=== PATIENT | female | born 1940 | race Caucasian/White ===

== ENCOUNTER 2020-07-02 07:25 | Day surgery (SDC) | payer MEDICARE, OTHER ==
--- NOTE | 2020-05-21 09:20 | NUR ---
PT ARRIVED TO DAY SURGERY RM 9. PT CONFIRMED THAT SHE DID NOT DO THE PRE-OP COVID SCREEN. PROCEDURE CANCELLED PER PROTOCOL AND PT INSTRUCTED TO RESCHEDULE WITH DR. MCMAHON OFFICE.
[~2020-07-02] VITALS: Ht 160 cm; Wt 78.8 kg
[~2020-07-02 07:25] MED LIST: ACETAMINOPHEN-1 EAC1 PO; CITALOPRAM HBR10 MG PO; DICYCLOMINE HCL10 MG PO; REQUIP XL2 MG PO
[2020-07-02] MEDS ORDERED: MULTI VITAMIN1 EACH PO (07:47)
[2020-07-02] MEDS ORDERED: EXCEDRIN MIGRA1 EACH PO (07:58)
--- NOTE | 2020-07-02 08:36 | NUR ---
07/02/20 0836 Martha Menjivar TO PACU, AWAKENS AND ANSWERS QUESTIONS EASILY. DENIES C/O.
--- NOTE | 2020-07-02 09:58 | OR ---
[facility] [address], [place] [address] Signed DATE OF OPERATION: 07/02/2020 SURGEON: Jessee Hendrix MD PREOPERATIVE DIAGNOSES: 1. Left upper quadrant abdominal pain. 2. Irritable bowel syndrome with diarrhea. 3. Laparoscopic Aman fundoplication in 2014. 4. Recurrent hiatal hernia. 5. History of Crohn disease in her son. POSTOPERATIVE DIAGNOSES: 1. Aman fundoplication (40-38 cm). 2. Mild patchy gastritis. 3. Patulous esophagus. PROCEDURES: EGD with CLOtest and biopsies of the duodenum, pyloric bulb and antrum. ESTIMATED BLOOD LOSS: None. INDICATIONS: Jaime is a 79-year-old female asked to see me for upper endoscopy. She has had irritable bowel syndrome with diarrhea for many years. She had a lap Aman in 2014 while living over in [place], [place]. Recently they moved to the [facility] [address] to be closer to family. She has been having left upper quadrant abdominal pain. She said the acid reflux is markedly improved. A CT scan of the abdomen and pelvis for microscopic hematuria showed a recurrence of her hiatal hernia. Consequently, she was asked to see me with respect to the above. I had explained that it is quite common that part of the fundoplication herniates. As long as it is functioning and asymptomatic, it is best to left alone. We also reviewed upper endoscopy in detail. She understands the nature of the test along with its risks including, but not limited to gas bloating, crampy abdominal pain, bleeding, perforation requiring surgery, and missed diagnosis. She also recalls the need for IV conscious sedation. She had expressed understanding and wished to proceed. We also sent her for a repeat barium swallow. She has a with an obvious patulous esophagus in her Aman fundoplication. She does have some recurrence to the hiatal hernia. Jaime had expressed understanding and wished to proceed with her upper endoscopy. Electronically Signed By: JESSEE HENDRIX MD 07/02/20 0958 PATIENT NAME: JAIME MELENDEZ OPERATIVE REPORT DATE OF : 44 REPORT #: [id number] PHYSICIAN: JESSEE HENDRIX MD PCP: GEORGIA SEWELL MD REPORT IS CONFIDENTIAL AND NOT TO BE RELEASED WITHOUT AUTHORIZATION [facility] [address] [place] [id number] Signed PROCEDURE NOTE: Jaime was taken into our endoscopy suite and placed in the supine semi-recumbent position. She was given IV sedation with 2 mg of Versed and 50 mcg of fentanyl. She is bradycardic in the 40s and so her circulation time was a bit slow. The posterior oropharynx was anesthetized with Hurricaine spray. A bite block was utilized for the case. The adult gastroscope had been introduced and advanced under direct visualization of camera. We could see she had a patulous esophagus with saliva in her distal esophagus. We went through the fundoplication all the way out into the third portion of the duodenum. We took a biopsy of the duodenum because of history of diarrhea. However, the duodenum and pyloric channel were unremarkable. The stomach showed some mild patchy erythematous changes throughout. We went and took a biopsy of the antrum for CLOtest as well as pathologic review. Upon retroflexion of scope, we can easily see her intact fundoplication. The scope was withdrawn up through the area of the fundoplication. It measured out from 40 cm back to about 37 cm. The GE junction is unremarkable. There is no disruption to the Z-line. No Brannon's mucosa, no distal esophagitis. Again, she has a patulous esophagus with pooling of saliva. However, no irritation. The middle and upper esophagus were unremarkable. No obvious areas of narrowing with the scope. The vocal cords and arytenoids were unremarkable. The gas had been suctioned out and the gastroscope removed. Jaime tolerated the procedure quite well. RECOMMENDATIONS: I will see Jaime back in my office in 7 to 14 days to review her barium swallow in the upper endoscopy. eJssee Hendrix MD ALB/MODL /[id number] cc: MD Jessee Smith MD Copies: GEORGIA SEWELL DMD Electronically Signed By: JESSEE HENDRIX MD 07/02/20 0958 PATIENT NAME: JAIME MELENDEZ OPERATIVE REPORT DATE OF : 44 REPORT #: [id number] PHYSICIAN: JESSEE HENDRIX MD PCP: GEORGIA SEWELL MD REPORT IS CONFIDENTIAL AND NOT TO BE RELEASED WITHOUT AUTHORIZATION [address] [address] Signed JESSEE HENDRIX MD ~ Electronically Signed By: JESSEE HENDRIX MD 07/02/20 0958 PATIENT NAME: JAIME MELENDEZ OPERATIVE REPORT DATE OF : 44 REPORT #: [id number] PHYSICIAN: JESSEE HENDRIX MD PCP: GEORGIA SEWELL MD REPORT IS CONFIDENTIAL AND NOT TO BE RELEASED WITHOUT AUTHORIZATION
--- NOTE | 2020-07-03 15:49 | PATH ---
[facility] [address] [place], [place] [address] Signed SPECIMEN(S): A DUODENAL BIOPSY SPECIMEN(S): B ANTRUM/PYLORUS BIOPSY SPECIMEN SOURCE: A. DUODENAL BIOPSY B. ANTRUM/PYLORUS BIOPSY CLINICAL HISTORY: Left upper quadrant pain. History of hiatal hernia. History of diarrhea. Gastritis. MICROSCOPIC DESCRIPTION: Histologic sections of all submitted blocks are examined by light microscopy. These findings, together with the gross examination, support the pathologic diagnosis. B1 - An immunostain for Helicobacter pylori is performed with appropriate controls to evaluate for the presence of microorganisms. The stain is negative for organisms. FINAL PATHOLOGIC DIAGNOSIS: A. Duodenal biopsy: - Benign duodenal mucosa, negative for specific diagnostic abnormality. B. Antrum/pylorus, biopsy: - Mild chronic gastritis. - Helicobacter pylori immunostain is negative for organisms. JVR:cml:C2NR GROSS DESCRIPTION: Two specimens are received in two containers, labeled "NO." A. The specimen, labeled "NO, duodenum biopsy," is received in formalin and consists of one martinez soft tissue fragment that measures 0.3 cm in greatest dimension. The specimen is entirely submitted in cassette (A1). B. The specimen, labeled "NO, antrum biopsy," is received in formalin and consists of one martinez soft tissue fragment that measures 0.3 cm in greatest dimension. The specimen is entirely submitted in cassette (B1). JS (under the direct supervision of a pathologist) The Gross Description was prepared using a voice recognition system. The report was reviewed for accuracy; however, sound-alike word errors, addition and/or deletions may occur. If there is any question about this report, please contact Client Services. PATIENT NAME: JAIME MELENDEZ PATHOLOGY DATE OF : 44 REPORT #: [id number] PHYSICIAN: [facility] PCP: GEORGIA SEWELL MD REPORT IS CONFIDENTIAL AND NOT TO BE RELEASED WITHOUT AUTHORIZATION [facility] [address] [place], [place] [address] Signed PERFORMING LABORATORY: The technical component was performed by [facility], [address] [place] [address] (Cafeteria [employer] Lunchroom Checker: Roselyn Tam MD; CLIA# [id number]). Professional interpretation [place] [address]. Diagnostician: Yann Toure MD Pathologist Electronically Signed 07/03/2020 Copies: ~ PATIENT NAME: JAIME MELENDEZ PATHOLOGY DATE OF : 44 REPORT #: [id number] PHYSICIAN: [facility] PCP: GEORGIA SEWELL MD REPORT IS CONFIDENTIAL AND NOT TO BE RELEASED WITHOUT AUTHORIZATION
== END 2020-07-02 09:00 | disposition home or self-care (01) ==
LOC: DS 07:25 → OPS 07:25
PROVIDERS: ATTEND Colon & Rectal Surgery
PROC: 0DB68ZX Excision of Stomach, Via Natural or Artificial Opening Endoscopic, Diagnostic (ICD-10-PCS; 2020-07-02)
PROC: 0DB98ZX Excision of Duodenum, Via Natural or Artificial Opening Endoscopic, Diagnostic (ICD-10-PCS; principal; 2020-07-02 08:15)
DX: K29.50 Unspecified chronic gastritis without bleeding (principal); K58.0 Irritable bowel syndrome with diarrhea; K44.9 Diaphragmatic hernia without obstruction or gangrene; K22.9 Disease of esophagus, unspecified; K21.9 Gastro-esophageal reflux disease without esophagitis; F41.8 Other specified anxiety disorders; G25.81 Restless legs syndrome; M25.561 Pain in right knee; M25.552 Pain in left hip; Z98.890 Other specified postprocedural states; Z83.79 Family history of other diseases of the digestive system
CPT/HCPCS: 86677; 88305; 88342; 99153; G0500; J2250; J3010; J7121

== ENCOUNTER 2021-05-09 08:42 | Emergency (ER) | payer MEDICARE, OTHER ==
[~2021-05-09] VITALS: Ht 160 cm; Wt 78.5 kg
[~2021-05-09 08:42] MED LIST changes: +EXCEDRIN MIGRA1 EACH PO; +MULTI VITAMIN1 EACH PO
--- NOTE | 2021-05-10 18:51 | EKG ---
[facility] [address] [facility] [place], [place] [address] Signed Sinus bradycardia Otherwise normal ECG No previous ECGs available Confirmed by IRMA PHELAN DO ([id number]) on 05/10/2021 6:51:35 PM Electronically Signed By: IRMA PHELAN DO 05/10/211850 PATIENT NAME: JAIME MELENDEZ Electrocardiogram DATE OF : 44 PHYSICIAN: IRMA PHELAN DO REPORT #: [id number] REPORT IS CONFIDENTIAL AND NOT TO BE RELEASED WITHOUT AUTHORIZATION
== END 2021-05-09 11:10 | disposition home or self-care (01) ==
LOC: ED 08:42
DX: R07.89 Other chest pain (principal); Z87.891 Personal history of nicotine dependence; Z88.0 Allergy status to penicillin; Z79.899 Other long term (current) drug therapy
CPT/HCPCS: 71045; 71260; 80053; 84484; 85025; 85379; 93005; 93010; 99285-25; Q9967

== ENCOUNTER 2022-03-30 10:31 | Emergency (ER) | payer MEDICARE, OTHER ==
[~2022-03-30] VITALS: Ht 160 cm; Wt 81.2 kg
[2022-03-30] MEDS ORDERED: ONDANSETRON ODT8 MG PO (12:46)
== END 2022-03-30 13:47 | disposition home or self-care (01) ==
LOC: ED 10:31
DX: K52.9 Noninfective gastroenteritis and colitis, unspecified (principal); Z87.891 Personal history of nicotine dependence; Z88.0 Allergy status to penicillin; Z79.899 Other long term (current) drug therapy
CPT/HCPCS: 36415; 80053; 81001; 83735; 85025; 96361; 96374; 99284-25; J2405; J7030

== ENCOUNTER 2023-01-11 05:45 | Day surgery (SDC) | payer MEDICARE, OTHER ==
[2022-12-31 14:00] VITALS: BP 139/77
[~2023-01-11] VITALS: Ht 160 cm; Wt 79.5 kg
[2023-01-11] VITALS (10 sets, daily range): BP systolic 90–128; BP diastolic 50–66
[~2023-01-11 05:45] MED LIST changes: +ONDANSETRON ODT8 MG PO; -REQUIP XL2 MG PO; +ROPINIROLE HCL4 MG PO; +VITAMIN A2400 MCG PO; +VITAMIN B COMP1 EACH PO; +VITAMIN K100 MCG PO
[2023-01-11] MEDS ORDERED: EXCEDRIN MIGRA1 EAC2 PO (06:15)
[2023-01-11] MEDS ORDERED: XARELTO10 MG PO (09:11)
[2023-01-11] MEDS ORDERED: SENNA LAX8.6 MG PO (09:11)
[2023-01-11] MEDS ORDERED: OXYCODONE HCL5 MG PO (09:11)
[2023-01-11] MEDS ORDERED: GABAPENTIN300 MG PO (09:11)
[2023-01-11] MEDS ORDERED: CEFUROXIME500 MG PO (13:08)
--- NOTE | 2023-01-11 13:39 | OR ---
[facility] [address] [facility] [place] [address] Signed DATE OF OPERATION: 01/11/2023 SURGEON: Marilu Arzola MD PREOPERATIVE DIAGNOSIS: Left hip DJD, severe. POSTOPERATIVE DIAGNOSIS: Left hip DJD, severe. PROCEDURE PERFORMED: Left total hip arthroplasty with Abdiaziz. RV TECHNICIAN: Ellen Dominguez PA-C. Ellen was present and critical for all portions of procedure. ANESTHESIA: Spinal. BLOOD LOSS: 175 mL. IMPLANTS: Otterbein size 2 high offset stem, 46 mm cup with 2 screws and +0 head. BRIEF HISTORY: Jaime is an 82-year-old female with progressive worsening of severe osteoarthritis in the left hip. Risks and benefits of operative treatment were discussed with her and she elected to proceed. DESCRIPTION OF OPERATION: Once consent was obtained, she was taken to the operating room. After adequate anesthesia, she was placed in the operating bed on the right lateral decubitus position. Axillary roll was placed and the leg was prepped and draped in a standard sterile fashion. All downside pressure points were well padded. The pins for the computer array were then placed in the iliac crest three fingerbreadths posterior to the ASIS. The hip was then approached through standard anterolateral approach with a longitudinal skin incision taken through the skin and subcutaneous tissue. The IT band was divided longitudinally just posterior to its anterior edge. The vastus lateralis was then Electronically Signed By: MARILU ARZOLA MD 01/11/23 1339 PATIENT NAME: JAIME MELENDEZ OPERATIVE REPORT DATE OF : 44 REPORT #: [id number] PHYSICIAN: MARILU ARZOLA MD PCP: GEORGIA SEWELL MD REPORT IS CONFIDENTIAL AND NOT TO BE RELEASED WITHOUT AUTHORIZATION [facility] [address] [place], [place] [address] Signed divided from the tip of the trochanter distally and subperiosteally elevated. The gluteus medius was divided just along its anterior margin from the tip of the trochanter to the acetabular rim. This was taken down to the capsule and femoral neck, which was then elevated off the anterior femoral neck all the way around as far as we could reach. The capsule was released and a posterior partial capsulectomy was performed. The posterior superior osteophyte off the acetabulum was removed to allow better chance of dislocation. Once this was accomplished, the leg was registered with the computer and the hip was dislocated. The femoral neck cut was made one fingerbreadth above the lesser trochanter and the head was passed off the table. The patient wanted to save it. Once this was completed, the periacetabular soft tissue was removed and the remnants of the bone are removed. The fine anatomic points of the acetabulum were registered with the computer. Once this was accomplished, the robot was brought in. The acetabulum was reamed with a 44 first followed by 46. No cysts were identified. The osteophytes were trimmed back posteriorly. The cup was then impacted in 23 degrees of anteversion and 44 degrees of abduction. Once this was completed, the cup was secured with two 6.5 screws posterior superior. The acetabular liner was then impacted until it was well seated and locked. Attention was then turned to the proximal femur which was opened using the tiffany cutter followed by the Jillian awl. We then sequentially broached up to a 2, which was found to be well fitting and left in position. The high offset neck and a +0 head was positioned. The hip was reduced. The leg lengths were found to be equal with excellent range of motion and a negative Shuck test. The hip was dislocated and the trials were removed. The final stem was impacted until it was well seated and flushed with the cup. The +0 32 mm head was impacted and the hip was reduced and again leg lengths found to be good. The hip was stable throughout the range of motion. We then copiously irrigated the entire wound with Surgiphor followed by normal saline. The capsulotomy was then closed using #1 Vicryl. The vastus and IT bands were closed independently using #2 Stratafix, the subcutaneous tissue with 0 Stratafix and the skin with 3-0 Stratafix. LiquiBand was applied and the wound was dressed with an Aquacel Ag dressing. The patient was then awakened, taken to the recovery room in satisfactory condition. All sponge, needle, and instrument counts were correct. Marilu Arzola MD BA/MODL /[id number] Electronically Signed By: MARILU ARZOLA MD 01/11/23 1339 PATIENT NAME: JAIME MELENDEZ OPERATIVE REPORT DATE OF : 44 REPORT #: [id number] PHYSICIAN: MARILU ARZOLA MD PCP: GEORGIA SEWELL MD REPORT IS CONFIDENTIAL AND NOT TO BE RELEASED WITHOUT AUTHORIZATION [address] [address] Signed Copies: ~ Electronically Signed By: MARILU ARZOLA MD 01/11/23 1339 PATIENT NAME: JAIME MELENDEZ OPERATIVE REPORT DATE OF : 44 REPORT #: [id number] PHYSICIAN: MARILU ARZOLA MD PCP: GEORGIA SEWELL MD REPORT IS CONFIDENTIAL AND NOT TO BE RELEASED WITHOUT AUTHORIZATION
[2023-01-12] VITALS (8 sets, daily range): BP systolic 80–120; BP diastolic 48–84
[2023-01-12] MEDS ORDERED: VITAMINS A & D1 EACH PO (07:46)
[2023-01-13 06:06] VITALS: BP 113/57
[2023-01-13 09:51] VITALS: BP 121/56
== END 2023-01-13 12:30 | disposition home or self-care (01) ==
LOC: DS 05:45 → MS 05:45 → DS 07:00 → MS 17:00 → DS 01-13 12:30
PROVIDERS: ATTEND Specialist
PROC: 0SRB0JZ Replacement of Left Hip Joint with Synthetic Substitute, Open Approach (ICD-10-PCS; principal; 2023-01-11 07:00)
DX: M16.12 Unilateral primary osteoarthritis, left hip (principal); Z88.0 Allergy status to penicillin
CPT/HCPCS: 01214; 72170; 97110; 97116; 97162; 97530; A9270; C1713; C1776; J0690; J1100; J1885; J2001; J2250; J2405; J2704; J3490; J7040; J7121

== ENCOUNTER 2023-01-18 11:57 | Inpatient (IN) | payer MEDICARE, OTHER | END 2023-01-22 13:15 | DRG 556 | LOC: ED 11:57 → MS 17:15 | PROVIDERS: ADMIT Specialist | PROC: 0T9B70Z Drainage of Bladder with Drainage Device, Via Natural or Artificial Opening (ICD-10-PCS; principal; 2023-01-19) | DX: M25.552 Pain in left hip (principal); K52.9 Noninfective gastroenteritis and colitis, unspecified; R33.9 Retention of urine, unspecified; I25.10 Atherosclerotic heart disease of native coronary artery without angina pectoris; G25.81 Restless legs syndrome; K59.00 Constipation, unspecified; Z96.642 Presence of left artificial hip joint; Z88.0 Allergy status to penicillin; Z79.899 Other long term (current) drug therapy; Z79.82 Long term (current) use of aspirin; Z79.891 Long term (current) use of opiate analgesic; Z87.891 Personal history of nicotine dependence; Z90.49 Acquired absence of other specified parts of digestive tract; Z90.710 Acquired absence of both cervix and uterus ==

== ENCOUNTER 2025-04-19 08:12 | Emergency (ER) | payer MEDICARE, OTHER ==
[~2025-04-19] VITALS: Ht 160 cm; Wt 71.4 kg
[~2025-04-19 08:12] MED LIST changes: +CEFUROXIME500 MG PO; +EXCEDRIN MIGRA1 EAC2 PO; +GABAPENTIN300 MG PO; +OXYCODONE HCL5 MG PO; +PREDNISONE20 MG PO; +PRESERVISION A1 EAC5 PO; +ROPINIROLE HCL1 MG PO; +SENNA LAX8.6 MG PO; +VITAMINS A & D1 EACH PO; +XARELTO10 MG PO
[2025-04-19] MEDS ORDERED: SODIUM CHLORIDE 0.9% 1,000 ML IV ONE (08:30)
[2025-04-19 09:05] LABS: BASOPHILS 0.8 % (0.1-1.2); EOSINOPHILS 6.1 % (0.7-5.8); LYMPHOCYTES 20.4 % (19.3-51.7); MCH 28.9 PG (25.6-32.2); MCHC 33.6 g/dL (32.2-35.5); MCV 86.0 fL (79.4-94.8); MONOCYTES 7.5 % (4.7-12.5); NEUTROPHILS 64.8 % (34.0-71.1); RBC 4.50 M/uL (3.93-5.22)
[2025-04-19 09:21] LABS: ALT (SGPT) 24.0 U/L (14-59); AST (SGOT) 25.0 U/L (15-37); GLOMERULAR FILTRATION RATE,EST 87.0 mL/min (>60); PROTEIN, TOTAL 6.8 g/dL (6.4-8.2); UREA NITROGEN 14.0 mg/dL (7-18)
[2025-04-19] MEDS ORDERED: LOMOTIL TABLET1 EACH PO (10:53)
[2025-04-19] MEDS ORDERED: DIPHENOXYLATE/ATROPINE 1 EA TAB PO ONE (11:00)
[2025-04-19] MEDS ORDERED: POTASSIUM CHLORIDE 10 MEQ TABCR PO ONE (11:00)
[2025-04-19 11:12] VITALS: BP 130/89
== END 2025-04-19 11:12 | disposition home or self-care (01) ==
LOC: ED 08:12
PROVIDERS: Emergency Medicine
DX: K52.9 Noninfective gastroenteritis and colitis, unspecified (principal); Z87.891 Personal history of nicotine dependence; Z88.0 Allergy status to penicillin; Z88.8 Allergy status to other drugs, medicaments and biological substances
CPT/HCPCS: 36415; 74177; 80053; 83690; 85025; 96361; 96374; 99284-25; A9270; J2405; J7030; Q9967